=== PATIENT | male | born 1945 | race Caucasian/White ===

== ENCOUNTER 2020-03-23 05:35 | Inpatient (IN) ==
[2020-03-23] MEDS ORDERED: Lactated Ringers 1000 ml BAG 1,000 ML IV SCH ×2 (06:00→11:00)
[2020-03-23] MEDS ORDERED: Buffered Lidocaine 1% SYRIN 1 ml INTRADERM ONE ×2 (06:00→06:16)
[2020-03-23] MEDS ORDERED: Famotidine IV 10 MG/ML 2 ml VIAL (20 mg) IV ONE (06:00)
[2020-03-23] MEDS ORDERED: ceFAZolin 2 GM PREMIX 2 GM/50 ML BAG ONE (06:16)
[2020-03-23] MEDS ORDERED: Famotidine IV 10 MG/ML 2 ml VIAL (20 mg) ONE (06:16)
[2020-03-23] MEDS ORDERED: Propofol 10 MG/ML 20 ML BTL ONE ×2 (06:44→09:38)
[2020-03-23] MEDS ORDERED: Ondansetron 4 mg VIAL 2 MG/ML 2 ml VIAL ONE (06:44)
[2020-03-23] MEDS ORDERED: Dexamethasone IV 4 MG/ML VIAL 1 ml VIAL ONE (06:44)
[2020-03-23] MEDS ORDERED: Rocuronium 50 mg VIAL 10 mg/ml 5 ml VIAL (50 mg) ONE ×2 (06:50→09:31)
[2020-03-23] MEDS ORDERED: fentaNYL 250 mcg/5 ml 50 MCG/ML 5 ml VIAL (250 MCG) ONE (06:52)
[2020-03-23] MEDS ORDERED: Etomidate 20 mg/10 ml 2 MG/ML 10 ml VIAL ONE (07:03)
[2020-03-23] MEDS ORDERED: Phenylephrine IV 10 MG/ML 1 ml VIAL ONE (07:29)
[2020-03-23] MEDS ORDERED: Lidocaine 1% w EPI 1:100,000 MDV 20 ML VIAL ONE (07:40)
[2020-03-23] MEDS ORDERED: Thrombin 5,000 UNITS 1 APPLIC KIT - topical use - TOPICAL ONE (07:40)
[2020-03-23] MEDS ORDERED: Bacitracin INJECTION 50,000 UNITS ONE (07:41)
[2020-03-23] MEDS ORDERED: Thrombin 5,000 UNITS(BOVINE) for Ultrasound Guided Pseudoaneursym ONE (07:41)
[2020-03-23] MEDS ORDERED: Bupivacaine 0.5% SDV PF 30ML VIAL ONE (07:41)
[2020-03-23] MEDS ORDERED: EPHEDrine (Pressors) 50 MG/ML VIAL ONE (08:51)
[2020-03-23] MEDS ORDERED: Succinylcholine 200 mg VIAL 20 mg/ml 10 ml VIAL (200 mg) ONE (09:35)
[2020-03-23] MEDS ORDERED: fentaNYL 100 mcg/2 ml 50 MCG/ML VIAL ONE (10:13)
[2020-03-23] MEDS ORDERED: Lidocaine 2% PF 5 ML VIAL ONE (10:36)
[2020-03-23] MEDS ORDERED: Naloxone 0.4 mg VIAL 0.4 mg/ml 1 ml VIAL IV PRN (10:48)
[2020-03-23] MEDS ORDERED: HYDROmorphone 1 MG/1 ML SYRINGE IV PRN (10:48)
[2020-03-23] MEDS ORDERED: fentaNYL 100 mcg/2 ml 50 MCG/ML VIAL IV PRN (10:48)
[2020-03-23] MEDS ORDERED: Ondansetron 4 mg VIAL 2 MG/ML 2 ml VIAL IV PRN ×2 (10:48→11:00)
[2020-03-23] MEDS ORDERED: Magnesium Hydroxide LIQ 30 ML UDC PO PRN (11:00)
[2020-03-23] MEDS ORDERED: HYDROcodone/ACETAMIN 5/325 mg TAB PO PRN ×2 (11:00)
[2020-03-23] MEDS ORDERED: Labetalol IV 5 MG/ML 20 ml VIAL ONE (11:07)
[2020-03-23] MEDS ORDERED: Labetalol IV 5 MG/ML 20 ml VIAL IV PUSH ONE (12:41)
[2020-03-23 13:25] LABS: BUN/Creatinine Ratio 14.4 (8-20); Blood Urea Nitrogen 14 mg/dL (6-24); CO2 Carbon Dioxide 26 mmol/L (22-32); Calcium 8.5 mg/dL (8.6-10.3); Chloride 102 mmol/L (101-111); EGFR African American 91.5 (>60); EGFR Non-African American 75.7 (>60); Glucose 188 mg/dL (70-100); Magnesium 1.4 mg/dL (1.9-2.7); Sodium 135 mmol/L (135-145)
[2020-03-23 13:49] LABS: ABS Lymphocytes 1.2 10^3/ul (1.0-4.8); ABS Monocytes 0.2 10^3/ul (0-0.8); ABS Neutrophils 8.9 10^3/ul (1.5-7.7); Eosinophil % 0.2 %; Hematocrit 42 % (42-52); Hemoglobin 14.1 g/dL (14.0-18.0); Lymphocyte % 11.6 %; Mean Corpuscular HGB Conc 34 g/dL (31-36); Mean Corpuscular Hemoglobin 30 pg (27-31); Mean Corpuscular Volume 89 fL (80-94); Nucleated Red Blood Cells % 0.1; Red Blood Count 4.75 10^6 /uL (4.18-5.48); Red Cell Distribution Width 16 % (10-15); White Blood Count 10.3 10^3/uL (3.5-10.8)
[2020-03-23] MEDS ORDERED: hydrALAZINE 20 mg/ml 1 ML Vial IV IV SLOW PU ONE (14:08)
[2020-03-23 14:26] LABS: Anion Gap 7 mmol/L (2-11)
[2020-03-23 14:45] LABS: Mean Platelet Volume 9.2 fL (7.4-10.4); Platelet Count 148 10^3/uL (150-450)
[2020-03-23] MEDS ORDERED: niCARdipine 0.1MG/ML IVPREMIX 20 MG/200 ML BAG IV SCH (15:00)
[2020-03-23] MEDS ORDERED: Magnesium Sulfate IV 3 GM in NS 0.9% 100 ml BAG 100 ML IVPB ONE (16:00)
[2020-03-24] MEDS ORDERED: niCARdipine 0.1MG/ML IVPREMIX 20 MG/200 ML BAG IV SCH (04:42)
[2020-03-24 04:50] LABS: ABS Lymphocytes 1.8 10^3/ul (1.0-4.8); ABS Monocytes 0.9 10^3/ul (0-0.8); ABS Neutrophils 7.5 10^3/ul (1.5-7.7); Eosinophil % 0.4 %; Hematocrit 39 % (42-52); Hemoglobin 13.3 g/dL (14.0-18.0); Lymphocyte % 17.6 %; Mean Corpuscular HGB Conc 34 g/dL (31-36); Mean Corpuscular Hemoglobin 30 pg (27-31); Mean Corpuscular Volume 87 fL (80-94); Mean Platelet Volume 8.1 fL (7.4-10.4); Platelet Count 143 10^3/uL (150-450); Red Blood Count 4.46 10^6 /uL (4.18-5.48); Red Cell Distribution Width 16 % (10-15); White Blood Count 10.3 10^3/uL (3.5-10.8)
[2020-03-24 05:20] LABS: Calcium 8.1 mg/dL (8.6-10.3); EGFR African American 102.4 (>60); EGFR Non-African American 84.7 (>60); Magnesium 1.8 mg/dL (1.9-2.7); Potassium 4.2 mmol/L (3.5-5.0)
[2020-03-24] MEDS ORDERED: Dextrose 50% Syringe 50 ml 25 GM/50 ML SYRINGE IV PUSH PRN (07:30)
[2020-03-25 10:32] VITALS: BP 144/74
[2020-03-25] MEDS ORDERED: Insulin GLARGINE 100 un/ml 10 ml VIAL SUBCUT ONE (12:03)
== END 2020-03-25 13:15 | disposition home health service (06) | DRG 32 ==
LOC: AA 05:35 → ICU 11:00 → SSU 03-24 14:01
PROVIDERS: ADMIT Neurological Surgery; ATTEND Internal Medicine

== ENCOUNTER 2021-08-17 21:17 | Observation (INO) ==
[2021-08-17 22:40] LABS: ABS Lymphocytes 0.9 10^3/ul (1.0-4.8); ABS Monocytes 0.5 10^3/ul (0-0.8); Eosinophil % 0.2 %; Hematocrit 43 % (42-52); Hemoglobin 14.4 g/dL (14.0-18.0); Lymphocyte % 10.6 %; Mean Corpuscular HGB Conc 33 g/dL (31-36); Mean Corpuscular Hemoglobin 31 pg (27-31); Mean Corpuscular Volume 92 fL (80-94); Mean Platelet Volume 8.7 fL (7.4-10.4); Platelet Count 123 10^3/uL (150-450); Red Cell Distribution Width 16 % (10-15); White Blood Count 8.5 10^3/uL (3.5-10.8)
[2021-08-17 22:51] LABS: INR 2.45 (0.86-1.15)
[2021-08-17 23:16] LABS: Albumin 4.1 g/dL (3.2-5.2); C Reactive Protein 1.19 mg/L (<8.01); Calcium 9.1 mg/dL (8.6-10.3); Globulin 2.1 g/dL (2-4); Potassium 4.6 mmol/L (3.5-5.0); Total Bilirubin 0.3 mg/dL (0.2-1.0); Total Protein 6.2 g/dL (6.4-8.9); eGFR CKD-EPI 60.6 (>60)
[2021-08-18 00:06] LABS: High Sensitivity Troponin 1 Hr 7 pg/mL (<20)
[2021-08-18] MEDS ORDERED: Dextrose 50% Syringe 50 ml 25 GM/50 ML SYRINGE IV PUSH PRN (02:56)
[2021-08-18] MEDS ORDERED: Warfarin per PHARMACY **NOTE FOLLOW UP SCH (04:00)
[2021-08-18 06:34] LABS: ABS Eosinophils 0.1 10^3/ul (0-0.6); ABS Lymphocytes 1.8 10^3/ul (1.0-4.8); ABS Monocytes 0.6 10^3/ul (0-0.8); ABS Neutrophils 4.1 10^3/ul (1.5-7.7); Eosinophil % 1.5 %; Hematocrit 41 % (42-52); Lymphocyte % 26.9 %; Mean Corpuscular HGB Conc 34 g/dL (31-36); Mean Corpuscular Hemoglobin 31 pg (27-31); Mean Corpuscular Volume 91 fL (80-94); Mean Platelet Volume 8.7 fL (7.4-10.4); Platelet Count 121 10^3/uL (150-450); Red Blood Count 4.52 10^6 /uL (4.18-5.48); Red Cell Distribution Width 15 % (10-15); White Blood Count 6.6 10^3/uL (3.5-10.8)
[2021-08-18 06:38] LABS: INR 2.86 (0.86-1.15)
[2021-08-18 06:54] LABS: Albumin 3.5 g/dL (3.2-5.2); Albumin/Globulin Ratio 1.9 (1-3); Calcium 8.8 mg/dL (8.6-10.3); Globulin 1.8 g/dL (2-4); Magnesium 1.8 mg/dL (1.9-2.7); Potassium 4.2 mmol/L (3.5-5.0); Total Bilirubin 0.4 mg/dL (0.2-1.0); Total Protein 5.3 g/dL (6.4-8.9)
[2021-08-18] MEDS ORDERED: Magnesium Sulfate 2 gm BAG 2 GM/50 ML BAG IVPB ONE (07:29)
[2021-08-18] MEDS ORDERED: Aspirin EC 81 mg TAB.EC (enteric coated) PO SCH (09:00)
[2021-08-18] MEDS ORDERED: CMCS:Ranolazine 500 mg TAB ER (NF) PO SCH (09:00)
[2021-08-18] MEDS ORDERED: INSULIN GLARGINE (NF) 300 UNIT/ML INJ SUBCUT SCH (09:00)
[2021-08-18] MEDS ORDERED: Insulin GLARGINE 100 un/ml 10 ml VIAL SUBCUT SCH (10:00)
[2021-08-18 13:29] LABS: Urine Appearance Clear; Urine Bilirubin Negative (Negative); Urine Blood Negative (Negative); Urine Color Yellow; Urine Glucose 3+(>=500 mg/dL) (Negative); Urine Ketones Negative (Negative); Urine Nitrite Negative (Negative); Urine Protein Negative (Negative); Urine Specific Gravity 1.022 (1.002-1.030); Urine Urobilinogen Negative (Negative)
[2021-08-18 15:12] VITALS: BP 115/74
[2021-08-18] MEDS ORDERED: Warfarin DAILY REMINDER **NOTE FOLLOW UP SCH (17:00)
[2021-08-18] MEDS ORDERED: Metformin ER 750 mg TAB (NF) PO SCH (21:00)
== END 2021-08-18 16:15 | disposition home or self-care (01) ==
LOC: ED 21:17 → MED 21:17
PROVIDERS: ADMIT Internal Medicine; ATTEND Internal Medicine

== ENCOUNTER 2022-12-07 19:32 | Observation (INO) ==
[2022-12-07 21:32] LABS: Hematocrit 37.2 % (38-53); Hemoglobin 12.1 g/dL (13.2-16.3); Mean Corpuscular Hemoglobin 24.8 pg (27-33); Mean Corpuscular Hgb Conc 32.6 g/dL (31-36); Mean Corpuscular Volume 76.3 fL (80-97); Mean Platelet Volume 8.4 fL (7.5-11.2); Platelet Count 166 10^3/uL (150-450); Red Blood Count 4.88 10^6/uL (4.06-5.63); Red Cell Distribution Width 18.8 % (12-17); White Blood Count 7.7 10^3/uL (3.6-10.2)
[2022-12-07 21:48] LABS: Calcium 9.6 mg/dL (8.6-10.3); Creatinine, Serum 1.27 mg/dL (0.67-1.17); eGFR CKD-EPI 58.2 (>60)
[2022-12-08] MEDS ORDERED: Haloperidol 5 mg/ml SDV IV/IM 5 MG/ML AMP IM ONE ×2 (00:01→01:09)
[2022-12-08] MEDS ORDERED: LORazepam 2 mg VIAL 1 ml IV PUSH ONE (01:08)
[2022-12-08] MEDS ORDERED: Lorazepam PYXIS KEY PRN ×3 (01:08→04:06)
[2022-12-08] MEDS ORDERED: LORazepam 2 mg VIAL 1 ml IM ONE ×2 (01:17→04:06)
[2022-12-08] MEDS ORDERED: Polyethylene Glycol 3350 17 GM PACKET PO PRN (11:51)
[2022-12-08] MEDS ORDERED: Lactated Ringers 1000 ml BAG 1,000 ML IV ONE (12:40)
[2022-12-08] MEDS ORDERED: Haloperidol 5 mg/ml SDV IV/IM 5 MG/ML AMP IM PRN ×2 (12:41→21:42)
[2022-12-08] MEDS ORDERED: Dextrose 50% Syringe 50 ml 25 GM/50 ML SYRINGE IV PUSH PRN (12:48)
[2022-12-08] MEDS: Insulin GLARGINE 100 un/ml 10 ml VIAL SUBCUT SCH (14:45)
[2022-12-08] MEDS ORDERED: CMCS:Tranexamic Acid 650 MG TAB (NF) PO SCH (21:00)
[2022-12-08] MEDS ORDERED: Ampicillin ADVAN 1 GM in NS 0.9% 50 ML 50 ML IVPB SCH (22:00)
[2022-12-08] MEDS ORDERED: Enoxaparin 30 MG/0.3 ML SYR SUBCUT SCH (22:00)
[2022-12-08] MEDS: Lactated Ringers 1000 ml BAG 1,000 ML IV SCH (23:17)
[2022-12-08] MEDS: ceFAZolin 1 GM in Dextrose 1 GM/50 ML BAG IVPB SCH (23:17)
[2022-12-09] MEDS: ceFAZolin 1 GM in Dextrose 1 GM/50 ML BAG IVPB SCH ×2 (05:53→14:32)
[2022-12-09 06:47] LABS: eGFR CKD-EPI 77.5 (>60)
[2022-12-09] MEDS: Insulin GLARGINE 100 un/ml 10 ml VIAL SUBCUT SCH (08:35)
[2022-12-09] MEDS: Lactated Ringers 1000 ml BAG 1,000 ML IV SCH (13:20)
[2022-12-09 13:27] VITALS: BP 135/64
== END 2022-12-09 19:10 ==
LOC: ED 19:32 → EDHOLD 19:32 → MED 12-08 19:48
PROVIDERS: ADMIT Internal Medicine; ATTEND Internal Medicine